=== PATIENT | male | born 1955 | race Caucasian/White ===

== ENCOUNTER 2019-02-21 08:29 | Emergency (ER) | payer MEDICARE, BC ==
[~2019-02-21] VITALS: Ht 188 cm; Wt 100.0 kg
[2019-02-21] MEDS ORDERED: fentaNYL/PF 50MCG/1 ML 2ML syringe IV ONE ×2 (08:50→09:05)
[2019-02-21 09:11] LABS: BASOPHILS # (AUTO) 0.1 X10'3 (0-0.2); BASOPHILS % (AUTO) 1.2 % (0-1); EOSINOPHILS # (AUTO) 0.2 X10'3 (0-0.9); EOSINOPHILS % (AUTO) 2.5 % (0-6); HEMOGLOBIN 15.3 g/dl (14.0-17.9); LYMPHOCYTES # (AUTO) 3.1 X10'3 (1.1-4.8); LYMPHOCYTES % (AUTO) 35.8 % (21-51); MEAN CORPUSCULAR HEMOGLOBIN 33.3 PG (27.0-31.0); MEAN CORPUSCULAR HGB CONC 34.8 g/dL (33.0-36.5); MEAN CORPUSCULAR VOLUME 95.5 FL (78-98); MEAN PLATELET VOLUME 7.1 FL (7.4-10.4); MONOCYTES # (AUTO) 0.7 X10'3 (0-0.9); MONOCYTES % (AUTO) 8.7 % (2-12); NEUTROPHILS # (AUTO) 4.5 X10'3 (1.8-7.7); NEUTROPHILS % (AUTO) 51.8 % (42-75); PLATELET COUNT 319 X10'3 (140-440); RED BLOOD COUNT 4.61 X10'6 (4.70-6.10); RED CELL DISTRIBUTION WIDTH 13.6 % (11.5-14.5); WHITE BLOOD COUNT 8.6 X10'3 (4.5-11.0)
[2019-02-21] MEDS ORDERED: normal saline 1000ml 1,000 ML IVB ONE (09:20)
--- NOTE | 2019-02-21 09:20 | NUR ---
Verbal order from RYAN joseph for 1 L NS bolus IV now STAT, IV fluids initiated. RYAN joseph also requested patient be placed in trendelenburg at which patient has been placed in position.
[2019-02-21 09:27] LABS: ALANINE AMINOTRANSFERASE 43 U/L (12-78); ALBUMIN 4.5 G/DL (3.4-5.0); ALBUMIN/GLOBULIN RATIO 1.2 (1.1-1.5); ALKALINE PHOSPHATASE 112 IU/L (46-116); ANION GAP 16 (8-16); ASPARTATE AMINO TRANSFERASE 36 U/L (10-37); BLOOD UREA NITROGEN 21 MG/DL (7-18); BUN/CREATININE RATIO 20.6 (5.4-32.0); CALCIUM 9.5 MG/DL (8.5-10.1); CHLORIDE 103 MMOL/L (99-107); CREATININE 1.02 MG/DL (0.60-1.10); GLUCOSE 130 MG/DL (70-104); POTASSIUM 4.3 MMOL/L (3.5-5.1); SODIUM 138 MMOL/L (135-145); TOTAL CARBON DIOXIDE 19.1 MMOL/L (24-32); TOTAL PROTEIN 8.3 G/DL (6.4-8.2); eGFR 73 ML/MIN
[2019-02-21] MEDS ORDERED: morphine 4 MG/ML inj SYRINge IV ONE ×3 (09:35→14:25)
[2019-02-21] MEDS ORDERED: ondansetron/PF 4mg/2ml inj IV ONE (09:35)
[2019-02-21] MEDS ORDERED: normal saline 1000ML IV soln IVB ONE (09:35)
[2019-02-21] MEDS ORDERED: iohexol 300mg/ml 100ml inj. ONE (09:38)
--- NOTE | 2019-02-21 09:43 | NUR ---
Patient states that he is comfortable and does not need anything for pain at this time.
--- NOTE | 2019-02-21 10:15 | NUR ---
Patient out to CT.
--- NOTE | 2019-02-21 10:22 | NUR ---
Patient back in room from CT.
[2019-02-21] MEDS ORDERED: HYDR-4383 PO (13:48)
--- NOTE | 2019-02-21 14:25 | NUR ---
on discharge pt said joseph was going to give him medication before he left. Obtained new verbal order.
[2019-02-21 14:36] VITALS: BP 156/91
== END 2019-02-21 14:38 | disposition home or self-care (01) ==
LOC: ER 08:29
DX: K40.90 Unilateral inguinal hernia, without obstruction or gangrene, not specified as recurrent (principal); K42.9 Umbilical hernia without obstruction or gangrene
CPT/HCPCS: 36415; 74177; 76705; 80053; 85025; 85610; 96374; 96375; 96376; 99284; J2270; J3010; J7030; Q9967

== ENCOUNTER 2019-02-28 14:15 | Emergency (ER) | payer MEDICARE, BC ==
[~2019-02-28] VITALS: Ht 188 cm; Wt 101.0 kg
[~2019-02-28 14:15] MED LIST: HYDR-4383 PO
[2019-02-28 14:48] LABS: BASOPHILS # (AUTO) 0.1 X10'3 (0-0.2); BASOPHILS % (AUTO) 1.4 % (0-1); EOSINOPHILS # (AUTO) 0.1 X10'3 (0-0.9); EOSINOPHILS % (AUTO) 1.4 % (0-6); HEMATOCRIT 39.9 % (42.0-52.0); HEMOGLOBIN 13.7 g/dl (14.0-17.9); LYMPHOCYTES # (AUTO) 1.8 X10'3 (1.1-4.8); LYMPHOCYTES % (AUTO) 24.6 % (21-51); MEAN CORPUSCULAR HGB CONC 34.4 g/dL (33.0-36.5); MEAN CORPUSCULAR VOLUME 96.1 FL (78-98); MEAN PLATELET VOLUME 7.2 FL (7.4-10.4); MONOCYTES # (AUTO) 0.5 X10'3 (0-0.9); MONOCYTES % (AUTO) 7.5 % (2-12); NEUTROPHILS # (AUTO) 4.7 X10'3 (1.8-7.7); NEUTROPHILS % (AUTO) 65.1 % (42-75); PLATELET COUNT 297 X10'3 (140-440); RED BLOOD COUNT 4.15 X10'6 (4.70-6.10); RED CELL DISTRIBUTION WIDTH 13.6 % (11.5-14.5); WHITE BLOOD COUNT 7.2 X10'3 (4.5-11.0)
[2019-02-28 14:57] LABS: ALANINE AMINOTRANSFERASE 99 U/L (12-78); ALBUMIN 4.2 G/DL (3.4-5.0); ALBUMIN/GLOBULIN RATIO 1.2 (1.1-1.5); ALKALINE PHOSPHATASE 117 IU/L (46-116); ANION GAP 9 (8-16); ASPARTATE AMINO TRANSFERASE 49 U/L (10-37); BILIRUBIN,TOTAL 0.7 MG/DL (0.1-1.0); BLOOD UREA NITROGEN 27 MG/DL (7-18); BUN/CREATININE RATIO 27.8 (5.4-32.0); CHLORIDE 107 MMOL/L (99-107); CREATININE 0.97 MG/DL (0.60-1.10); GLUCOSE 101 MG/DL (70-104); POTASSIUM 5.1 MMOL/L (3.5-5.1); SODIUM 141 MMOL/L (135-145); TOTAL PROTEIN 7.6 G/DL (6.4-8.2); eGFR 77 ML/MIN
[2019-02-28] MEDS ORDERED: HYDR-4383 PO (16:24)
[2019-02-28 16:29] VITALS: BP 160/80
[2019-02-28 16:29] LABS: CLARITY,URINE CLEAR (Clear); COLOR,URINE YELLOW (Yellow); GLUCOSE, URINE NEGATIVE (Neg); KETONES,URINE NEGATIVE (Neg); LEUKOCYTE ESTERASE ,URINE NEGATIVE (Neg); NITRITES, URINE NEGATIVE (Neg); OCCULT BLOOD,URINE NEGATIVE (Neg); PROTEIN,URINE NEGATIVE (Neg); UROBILINOGEN,URINE 0.2 E.U/dL (0.2-1.0)
[2019-02-28 16:41] LABS: UA COLLECTION TYPE VOIDED
== END 2019-02-28 16:31 | disposition home or self-care (01) ==
LOC: ER 14:15
DX: K40.90 Unilateral inguinal hernia, without obstruction or gangrene, not specified as recurrent (principal); K42.9 Umbilical hernia without obstruction or gangrene; Z79.899 Other long term (current) drug therapy
CPT/HCPCS: 36415; 80053; 81003; 85025; 99283

== ENCOUNTER 2022-11-25 10:50 | Day surgery (SDC) | payer MEDICARE, BC ==
[2022-11-22 10:30] LABS: BASOPHILS # (AUTO) 0.1 X10'3 (0-0.2); BASOPHILS % (AUTO) 1.1 % (0-1); EOSINOPHILS # (AUTO) 0.1 X10'3 (0-0.9); EOSINOPHILS % (AUTO) 1.2 % (0-6); LYMPHOCYTES # (AUTO) 1.7 X10'3 (1.1-4.8); LYMPHOCYTES % (AUTO) 23.1 % (21-51); MEAN CORPUSCULAR HEMOGLOBIN 32.3 PG (27.0-31.0); MEAN CORPUSCULAR HGB CONC 33.7 g/dL (33.0-36.5); MEAN CORPUSCULAR VOLUME 95.8 FL (78-98); MEAN PLATELET VOLUME 7.2 FL (7.4-10.4); MONOCYTES # (AUTO) 0.7 X10'3 (0-0.9); MONOCYTES % (AUTO) 9.4 % (2-12); NEUTROPHILS # (AUTO) 4.8 X10'3 (1.8-7.7); NEUTROPHILS % (AUTO) 65.2 % (42-75); PRE OP PLATELET COUNT 281 X10'3 (140-440); PRE OP WHITE BLOOD COUNT 7.4 10'3 (4.8-10.8); RED BLOOD COUNT 3.34 X10'6 (4.70-6.10); RED CELL DISTRIBUTION WIDTH 14.7 % (11.5-14.5)
[2022-11-22 10:33] LABS: PRE OP HEMOGLOBIN 10.8 g/dL (14.0-17.9)
[2022-11-22 10:34] LABS: ALBUMIN 3.5 G/DL (3.4-5.0); ALBUMIN/GLOBULIN RATIO 1.1 (1.1-1.5); ALKALINE PHOSPHATASE 100 IU/L (46-116); BLOOD UREA NITROGEN 20 MG/DL (7-18); BUN/CREATININE RATIO 17.7 (10.0-20.0); CALCIUM 9.3 MG/DL (8.5-10.1); CHLORIDE 104 MMOL/L (99-107); CREATININE 1.13 MG/DL (0.60-1.10); PRE OP ALT 26 U/L (30-65); PRE OP ANION GAP 5 (8-16); PRE OP AST 22 U/L (10-37); PRE OP BILIRUB, TOTAL 1.6 MG/DL (0.0-1.0); PRE OP GLUCOSE 126 MG/DL (70-104); PRE OP POTASSIUM 3.4 MMOL/L (3.4-5.1); PRE OP SODIUM 140 MMOL/L (135-145); TOTAL CARBON DIOXIDE 30.6 MMOL/L (24-32); TOTAL PROTEIN 6.7 G/DL (6.4-8.2); eGFR 64 ML/MIN
[~2022-11-25] VITALS: Ht 188 cm; Wt 94.1 kg
[2022-11-25] VITALS (11 sets, daily range): BP systolic 139–167; BP diastolic 75–90; PULSE 52–71; RESP 12–22; TEMP 97.3; O2SAT 93–100
[~2022-11-25 10:50] MED LIST changes: +ASPI-612 PO; +DOCUMENT DATE & TIME OF BETA-BLOCKER PO ONE; -HYDR-4383 PO; +HYDR25TA4 PO; +INDOCYANINE GREEN 25 MG/10 ML VIAL IV ONE; +METO-411 PO; +cefazolin 2gm/D5W 100mL 100 ML IV ONE; +famotidine 20mg tablet PO ONE; +ringers solution, lacted 1,000 ML IV SCH
[2022-11-25] MEDS ORDERED: LIDOcaine 1% 30ml preserv. free vial ONE (13:39)
[2022-11-25] MEDS ORDERED: BUPIVAcaine 0.5% inj/PF 30 ML ONE (13:39)
[2022-11-25] MEDS ORDERED: fentaNYL/PF 50MCG/1 ML 2ML syringe ONE (13:45)
[2022-11-25] MEDS ORDERED: midazolam 1 mg/ML 2ml injection ONE (13:46)
[2022-11-25] MEDS ORDERED: sevoflurane 250ml liquid IH ONE (13:54)
[2022-11-25] MEDS ORDERED: ondansetron/PF 4mg/2ml inj IV PRN (14:05)
[2022-11-25] MEDS ORDERED: morphine 4 MG/ML inj SYRINge IV PRN (14:05)
[2022-11-25] MEDS ORDERED: meperidine/PF 25mg/ml syringe IV PRN ×3 (14:05)
[2022-11-25] MEDS ORDERED: ringers solution, lacted 1,000 ML IV SCH (14:05)
[2022-11-25] MEDS ORDERED: morphine 2 MG/ML inj. syringe IV PRN (14:05)
[2022-11-25] MEDS ORDERED: proCHLORperazine 10 MG/2 ml inj IV PRN (14:05)
[2022-11-25] MEDS ORDERED: BUPIVAcaine/PF 2.5 mg/ml (0.25%) 30ml vial IJ ONE (14:37)
[2022-11-25] MEDS ORDERED: LIDOcaine 1% 30ml preserv. free vial IJ ONE (14:39)
[2022-11-25] MEDS ORDERED: propofol inj 20 ML IV ONE (15:01)
[2022-11-25] MEDS ORDERED: LIDOcaine 1%/PF 5ML 10 MG/ML VIAL ONE (15:01)
[2022-11-25] MEDS ORDERED: rocuronium 10mg/ml inj IV ONE (15:01)
[2022-11-25] MEDS ORDERED: dexamethasone sod phosphate 4mg/ml inj. ONE (15:01)
[2022-11-25] MEDS ORDERED: acetaminophen 1,000mg/100ml IV 100 ML IV ONE (15:01)
[2022-11-25] MEDS ORDERED: ondansetron/PF 4mg/2ml inj ONE (15:01)
[2022-11-25] MEDS ORDERED: sugammadex 200mg/2ml injection IV ONE (15:03)
[2022-11-25] MEDS ORDERED: hydrALAZINE 20mg/ml inj. IV ONE (15:05)
[2022-11-25] MEDS ORDERED: meperidine/PF 25mg/ml syringe ONE (15:16)
--- NOTE | 2022-11-25 15:30 | NUR ---
Received from OR via [facility] , accompanied by Anesthesiologist EDUARD and report given by Anesthesiolgist. PATIENT WITH 20G PIV IN LEFT UE RUNNING LR AT 100. DENIES PAIN AT THIS TIME. PATIENT VSS. 3 ABDOMINAL BANDAIDS PRESENT. WILL CONTIUE TO ASSESS AND TREAT NEEDED FOR PAIN. Addendum: 11/25/22 at 1542 by Minesh Henriquez RN, RN Amended: Links added.
[2022-11-25] MEDS ORDERED: oxyCODONE/APAP 5-325mg tablet PO PRN (16:05)
[2022-11-25] MEDS ORDERED: oxyCODONE IR 5mg (immed. release) tablet PO ONE (16:15)
--- NOTE | 2022-11-25 16:30 | NUR ---
ALL DISCHARGE INSTRUCTIONS GIVEN TO PATIENT . ALL QUESTION ANSWERED AND PATIENT VSS, DENIES PAIN. ASSISTED IN DRESSING AND PATIENT RECEIVED ONE PERCOCET PER MD MARIE REQUEST. PATIENT TAKEN OUT VIA WHEELCHAIR BY MARKOS ZEPEDA AND PATIENT ABLE TO GET INTO VEHICLE WITH NO INCIDENT. DROVE PATIENT HOME. Addendum: 11/25/22 at 1647 by Minesh Martinez - MARKOS BURROWS Amended: Links added.
== END 2022-11-25 16:30 | disposition home or self-care (01) ==
LOC: PAS 10:50
PROVIDERS: ATTEND Surgery
DX: K80.20 Calculus of gallbladder without cholecystitis without obstruction (principal); I10 Essential (primary) hypertension; Z79.82 Long term (current) use of aspirin; Z79.899 Other long term (current) drug therapy; Z96.612 Presence of left artificial shoulder joint; Z98.49 Cataract extraction status, unspecified eye; Z98.890 Other specified postprocedural states; Z82.49 Family history of ischemic heart disease and other diseases of the circulatory system
CPT/HCPCS: 36415; 47563; 80053; 82948; 85025; 93005; J0131; J0360; J0690; J1100; J2175; J2250; J2405; J2704; J3010; J3490; J7030; J7120; S0020; Z7506; Z7508; Z7512; A4215; A4618; A7000